=== PATIENT | female | born 1955 | race American Indian/Alaskan Native ===

== ENCOUNTER 2019-07-06 09:41 | Outpatient (CLI) | payer MEDICARE ==
--- NOTE | 2019-07-06 10:51 | Mammography Report ---
DIGITAL DIAGNOSTIC MAMMOGRAM WITH CAD, 07/06/2019 INDICATION: Six-month follow-up for asymmetry. Breast cancer survivor status post right partial maste ctomy. TECHNIQUE: Digital right mammographic imaging was performed. This examination was interpreted with the benefit of Computer-aided Detection analysis. COMPARISON: 01/22/2019 mammogram from [place], [place] FINDINGS: Breast Density: The breast is most entirely fatty. There is no evidence of dominant mass, suspicious calcifications or suspicious architectural distortion in the right breast. Retroareolar scar is less prominent. IMPRESSION: No mammographic evidence of malignancy. Follow up recommendation: Back to schedule. BI-RADS Category 2: Benign. A "normal" or negative report should not discourage follow up or biopsy of a clinically significant f inding. A written summary of these findings will be mailed to the patient. The patient will be entered into a mammography reporting system which will generate a reminder letter for the patient's next appointmen t at the appropriate interval. According to the [employer], yearly mammograms are recommended starting at age 40 and continuing as long as a woman is in good health. Breast MRI is recommended for women with an torey roximately 20-25% or greater lifetime risk of breast cancer, including women with a strong family his tory of breast or ovarian cancer and women who have been treated for Hodgkin's disease. Signer Name: Manoj Ortiz MD Signed: 07/06/2019 10:47 AM Workstation Name: [id number]
== END 2019-07-06 09:42 | disposition home or self-care (01) ==
LOC: SPVWC 09:41
PROVIDERS: ATTEND Surgery
DX: N64.89 Other specified disorders of breast (principal)

== ENCOUNTER 2020-01-25 08:05 | Outpatient (CLI) | payer MEDICARE ==
--- NOTE | 2020-01-25 08:44 | Mammography Report ---
DIGITAL SCREENING MAMMOGRAM WITH CAD, 01/25/2020 INDICATION: Routine screening mammography. The patient has a personal history of right breast cancer treated with mastectomy. She reports no new breast symptoms on today's study. TECHNIQUE: Digital left 2D mammography was obtained in the craniocaudal and mediolateral oblique pro jections. This examination was interpreted with the benefit of Computer-Aided Detection analysis. COMPARISON: 04/09/2019 FINDINGS: Breast Density: There are scattered areas of fibroglandular density. There is no evidence of dominant mass, suspicious calcifications or architectural distortion in the l eft breast. Biopsy clip is again noted. IMPRESSION: Follow up recommendation: Routine yearly BI-RADS Category 2: Benign. A "normal" or negative report should not discourage follow up or biopsy of a clinically significant f inding. A written summary of these findings will be mailed to the patient. The patient will be entered into a mammography reporting system which will generate a reminder letter for the patient's next appointmen t at the appropriate interval. The [employer] recommends yearly mammograms starting at age 40 and continuing as l tosin as a woman is in good health. Breast MRI is recommended for women with an approximate 20-25% or greater lifetime risk of breast cancer, including women with a strong family history of breast or ova ericka cancer or who have been treated for Hodgkin's disease. Signer Name: Chhaya Saeed MD Signed: 01/25/2020 8:40 AM Workstation Name: [id number]
--- NOTE | 2020-01-25 09:58 | Mammography Report ---
DIGITAL SCREENING MAMMOGRAM WITH CAD, 01/25/2020 INDICATION: Routine screening mammography. The patient has a personal history of right breast cancer treated with mastectomy and reconstruction. She had a previous left screening mammogram earlier today . At the physician's request, we were asked to image the reconstructed right breast. TECHNIQUE: Digital right 2D mammography was obtained in the craniocaudal and mediolateral oblique pr ojections. This examination was interpreted with the benefit of Computer-Aided Detection analysis. COMPARISON: Right unilateral mammogram, 07/06/2019 FINDINGS: Breast Density: The breasts are almost entirely fatty. There is no evidence of dominant mass, suspicious calcifications or architectural distortion in the r ight reconstructed breast. There has been no significant interval change. IMPRESSION: Follow up recommendation: Routine yearly BI-RADS Category 2: Benign. A "normal" or negative report should not discourage follow up or biopsy of a clinically significant f inding. A written summary of these findings will be mailed to the patient. The patient will be entered into a mammography reporting system which will generate a reminder letter for the patient's next appointmen t at the appropriate interval. The [employer] recommends yearly mammograms starting at age 40 and continuing as l tosin as a woman is in good health. Breast MRI is recommended for women with an approximate 20-25% or greater lifetime risk of breast cancer, including women with a strong family history of breast or ova ericka cancer or who have been treated for Hodgkin's disease. Signer Name: Chhaya Saeed MD Signed: 01/25/2020 9:54 AM Workstation Name: [id number]
== END 2020-01-25 08:06 | disposition home or self-care (01) ==
LOC: SPVWC 08:05
PROVIDERS: ATTEND Surgery
DX: Z12.31 Encounter for screening mammogram for malignant neoplasm of breast (principal)

== ENCOUNTER 2020-02-01 08:57 | Outpatient (CLI) | payer MEDICARE ==
--- NOTE | 2020-02-01 09:43 | Ultrasound Report ---
EXAMINATION: Right Complete Breast Ultrasound, 02/01/2020 INDICATION: PERSONAL HX OF MALIGNANT NEOPLASM OF BREAST. Patient has history of right breast cancer status post p artial mastectomy in 2017. Patient presents for evaluation of right breast pain. COMPARISON: Prior mammogram 01/25/2020 FINDINGS: Targeted ultrasound evaluation was performed of the area of interest. Complete ultrasound of the right breast reveals benign postsurgical change in the central right breast. No suspicious cys tic or solid lesion is identified. There is no right axillary adenopathy. IMPRESSION: 1. Benign postsurgical change in the right breast. No suspicious sonographic abnormality identified t o account for right breast pain, therefore clinical correlation is recommended. Follow up recommendation: Routine yearly BI-RADS Category 2: Benign. Signer Name: Karla Bermudez MD Signed: 02/01/2020 9:39 AM Workstation Name: [email or web address]
== END 2020-02-01 08:58 | disposition home or self-care (01) ==
LOC: SPVWC 08:57
PROVIDERS: ATTEND Surgery
DX: Z12.31 Encounter for screening mammogram for malignant neoplasm of breast (principal); Z85.3 Personal history of malignant neoplasm of breast